=== PATIENT | female | born 1960 | race Caucasian/White ===

== ENCOUNTER → 2017-02-26 | Outpatient (CLI) | payer BC ==
[~2017-02-26] MED LIST: ADVIL200 M2 PO; ALEVE220 M1 PO; BAYER ASPIRIN325 M1 PO; DEXILANT60 MG PO; DIOVAN HCT 3201 EAC1 PO; FIBERCON625 MG PO; GABAPENTIN300 M2 PO; LASIX20 MG PO; MELOXICAM15 MG PO; OSTEO BI-FLEX1 EAC3 PO; PERCOCET 10/3251 TAB PO; TRAMADOL HCL50 M2 PO; VALSARTAN-HCTZ1 EAC1 PO; VESICARE PO
--- NOTE | ~2017-02-26 | EKG ---
PATIENT: SIERRA DUBON UNIT #: [id number] Ventricular Rate: 64 BPM Atrial Rate: 64 BPM P-R Interval: 166 ms QRS Duration: 92 ms Q-T Interval: 434 ms QTC Calculation(Bezet): 447 ms P [place]: 5 degrees Calculated R [place]: 9 degrees Calculated T [place]: 43 degrees Diagnosis Line: Normal sinus rhythm Diagnosis Line: Poor R wave progression questionable lead position Diagnosis Line: or body habitus Otherwise normal ECG Diagnosis Line: No previous ECGs available Diagnosis Line: Confirmed by ZAHEER BRASHER MD ([id number]) on 02/27/2017 Diagnosis Line: 3:26:07 PM INTERPRETING MD: ANSHU PALMER
--- NOTE | ~2017-02-26 | CR63 ---
[facility] A Service of [facility] & [facility] RADIOLOGY TEXT RESULTS PATIENT: SIERRA DUBON LOCATION: [facility] : 60 UNIT #: [id number] AGE: [address]: Adiel Rocha MD SEX: F ORDER DR: [id number] [facility] [address] [place], [place] [address] [id number] O MR#: [id number] Acc #: [id number] NAME: SIERRA DUBON : 1960 SEX: F STUDY DATE/TIME: 02/26/2017 12:27 UNIT: [facility] ROOM: STUDY DESCRIPTION: CR Chest 2 View Attending Physician: Adiel Rocha M.D. Referring Physician: Adiel Rocha M.D. Ordering Physician: Adiel Rocha M.D. MEDICAL IMAGING REPORT This report is preliminary unless electronic signature is present EXAM Chest 02/26/2017 HISTORY 56-year-old woman, preop clearance right to knee arthroscopy with excision of scar tissue. History of diabetes and hypertension. COMPARISON Chest 04/26/2016. FINDINGS Two-view chest demonstrates normal cardiac size and configuration. Hilar structures and mediastinal contours are preserved. Bilateral lungs are expanded and clear. Large body habitus noted. IMPRESSION Negative chest. Dictated by... Dariusz Sage M.D. THIS IS AN ELECTRONICALLY VERIFIED REPORT Dariusz Sage M.D. at 02/28/2017 8:06 AM GWEN/santiago TD: 02/27/2017 00:20 JOB #: [id number] MEDICAL IMAGING REPORT Page 1 of 1 COPY
[2017-02-26 12:07] LABS: HEMATOCRIT 41.5 % (35.0-45.0); HEMOGLOBIN 13.4 gm/dL (12.0-16.0); MEAN CELL VOLUME 86.1 FL (83-96); MEAN CORPUSCULAR HEMOGLOBIN 27.8 PG (28-34); MEAN CORPUSCULAR HGB CONC 32.3 g/dL (30-36); MEAN PLATELET VOLUME 8.9 FL (6.5-11.5); RED BLOOD COUNT 4.82 X10e (3.90-5.30); RED CELL DISTRIBUTION WIDTH 14.2 % (11.0-15.5); WHITE BLOOD COUNT 6.7 X10e3 (4.0-10.5)
[2017-02-26 12:14] LABS: URINE APPEARANCE CLEAR; URINE BILIRUBIN NEG (NEG); URINE BLOOD NEG (NEG); URINE COLOR YELLOW; URINE GLUCOSE NEG (NEG); URINE KETONE NEG (NEG); URINE LEUKOCYTE ESTERASE NEG (NEG); URINE NITRATE NEG (NEG); URINE PH 5.5 (5-8); URINE PROTEIN NEG (NEG); URINE SPECIFIC GRAVITY 1.012 (1.003-1.035); URINE UROBILINOGEN 0.2 MG/DL (NEG)
[2017-02-26 12:18] LABS: CULTURE INDICATED? NO; URINE SOURCE CLEAN CATCH
[2017-02-26 13:00] LABS: CALCIUM SERUM 9.2 mg/dL (8.4-10.2); CREATININE SERUM 0.6 mg/dL (0.6-1.4); GLOM FILT RATE Estimated 101.9 mL/min (>60); POTASSIUM 4.1 mmol/L (3.5-5.1)
== END | disposition home or self-care (01) ==
LOC: CRAD 11:34
PROVIDERS: Orthopaedic Surgery
DX: M24.661 Ankylosis, right knee (principal)
CPT/HCPCS: 36415; 71020; 80048; 81003; 85027; 93005